=== PATIENT | male | born 1970 | race Caucasian/White ===

== ENCOUNTER 2018-07-23 08:35 | Emergency (ER) | payer SELFPAY ==
[~2018-07-23] VITALS: Ht 175.3 cm; Wt 75.0 kg
[2018-07-23] MEDS ORDERED: SODIUM CHLORIDE 0.9% 1,000 ML IV ONE (09:15)
[2018-07-23] MEDS ORDERED: ZIPRASIDONE MESYLATE 20MG/VIAL IM ONE (09:15)
[2018-07-23 11:42] LABS: CLARITY URINE CLOUDY (CLEAR); COLOR URINE DARK YELLOW (YELLOW); KETONES URINE TRACE (NEGATIVE); LEUKOCYTE ESTERASE URINE NEGATIVE (NEGATIVE); NITRITE URINE NEGATIVE (NEGATIVE); OCCULT BLOOD URINE NEGATIVE (NEGATIVE); PROTEIN URINE 1+ (NEGATIVE); SPECIFIC GRAVITY URINE 1.022 (1.005-1.030)
[2018-07-23 12:13] LABS: *BARBITURATES SCREEN URINE NEGATIVE (NEGATIVE); *BENZODIAZEPINES SCREEN URINE NEGATIVE (NEGATIVE)
[2018-07-23 12:14] LABS: *COCAINE SCREEN URINE NEGATIVE (NEGATIVE)
[2018-07-23 12:15] LABS: CANNABINOID URINE SCREEN NEGATIVE (NEGATIVE); METHADONE URINE SCREEN NEGATIVE (NEGATIVE); OPIATES URINE SCREEN NEGATIVE (NEGATIVE); PHENCYCLIDINE URINE SCREEN NEGATIVE (NEGATIVE)
[2018-07-23 12:25] LABS: *AMPHETAMINES SCREEN URINE PRESUMTIVE POSITIVE (NEGATIVE)
[2018-07-23 13:18] LABS: BASOPHILS % 0.5 % (0.0-2.0); HEMATOCRIT. 39.3 % (42.0-52.0); HEMOGLOBIN. 13.3 g/dL (14.0-18.0); LYMPHOCYTES % 8.4 % (20.0-50.0); MEAN CORPUSCULAR HEMOGLOBIN 29.6 pg (28.0-32.0); MEAN CORPUSCULAR VOLUME 87.5 fL (80.0-94.0); MEAN PLATELET VOLUME 6.9 fl (7.4-10.4); MONOCYTES % 7.2 % (2.0-8.0); NEUTROPHILS % 83.9 % (40.0-76.0); PLATELET 296 x1000/uL (130-400); RED BLOOD CELL COUNT 4.49 mill/uL (4.7-6.1)
[2018-07-23 13:24] LABS: CHLORIDE 106 mEq/L (98-107)
[2018-07-23 13:30] LABS: ETHANOL BLOOD < 10 mg/dL
[2018-07-23] MEDS ORDERED: ZIPRASIDONE HCL 20MG CAPSULE PO ONE ×2 (15:30→22:00)
[2018-07-23] MEDS ORDERED: HYDROCODONE/ACETAMINOPHEN 5/325MG TABLET PO ONE (18:00)
[2018-07-23] MEDS ORDERED: ACETAMINOPHEN 325MG TABLET PO ONE (22:00)
[2018-07-24] MEDS ORDERED: ACETAMINOPHEN 325MG TABLET PO ONE (05:00)
[2018-07-24 14:32] VITALS: BP 111/68
== END 2018-07-24 16:03 | disposition home or self-care (01) ==
LOC: ER 08:40
DX: S22.43XA Multiple fractures of ribs, bilateral, initial encounter for closed fracture (principal); F15.929 Other stimulant use, unspecified with intoxication, unspecified; W18.39XA Other fall on same level, initial encounter; Y93.89 Activity, other specified; Y92.89 Other specified places as the place of occurrence of the external cause; Y99.8 Other external cause status
CPT/HCPCS: 36415; 70450; 71111; 80053; 80305; 80307; 80329; 81003; 85025; 96372; 99284; G0482; J3486; J7030

== ENCOUNTER 2020-10-27 20:48 | Inpatient (IN) | payer MEDICARE, MEDICAID ==
[~2020-10-27] VITALS: Ht 185.4 cm; Wt 91.2 kg
[2020-10-27 23:35] LABS: HEMOGLOBIN. 13.4 g/dL (14.0-18.0); MEAN CORPUSCULAR HEMOGLOBIN 30.1 pg (28.0-32.0); MEAN CORPUSCULAR VOLUME 89.3 fL (80.0-94.0); MEAN PLATELET VOLUME 8.7 fl (7.4-10.4); PLATELET 164 x1000/uL (130-400); RED BLOOD CELL COUNT 4.47 mill/uL (4.7-6.1); RED CELL DISTRIBUTION WIDTH 13.1 % (11.6-14.6)
[2020-10-27 23:37] LABS: CHLORIDE 103 mEq/L (98-107)
[2020-10-28] MEDS ORDERED: SODIUM CHLORIDE 0.9% 500 ML IV ONE ×3 (02:15→18:00)
[2020-10-28] MEDS ORDERED: ACETAMINOPHEN 325MG TABLET PO ONE (02:30)
[2020-10-28] MEDS ORDERED: CEFTRIAXONE 1 G PREMIX 50 ML IV ONE (03:45)
[2020-10-28] MEDS ORDERED: SODIUM CHLORIDE 0.9% 1000ML BAG (SEPSIS BOLUS) IV ONE (03:45)
[2020-10-28 04:55] LABS: NUCLEATED RED BLOOD CELLS 2 /100 WBC; PLATELET ESTIMATE NORMAL
[2020-10-28] MEDS ORDERED: MORPHINE SULFATE 2 MG/ML CPJ (NOT FOR IM USE) IV PRN (08:15)
[2020-10-28] MEDS ORDERED: ONDANSETRON HCL 4MG/2ML INJ IV PRN (08:15)
[2020-10-28] MEDS ORDERED: LORAZEPAM 2MG/ML CPJ IV PRN (08:15)
[2020-10-28] MEDS ORDERED: PIPERACILLIN/TAZ 3.375G PREMIX 50 ML IV SCH (08:30)
[2020-10-28 08:43] LABS: CLARITY URINE CLOUDY (CLEAR); COLOR URINE DARK YELLOW (YELLOW); KETONES URINE TRACE (NEGATIVE); LEUKOCYTE ESTERASE URINE 1+ (NEGATIVE); NITRITE URINE POSITIVE (NEGATIVE); OCCULT BLOOD URINE NEGATIVE (NEGATIVE); PROTEIN URINE 1+ (NEGATIVE); SPECIFIC GRAVITY URINE 1.021 (1.005-1.030); UROBILINOGEN URINE 0.2 E.U./dL (0.2-1.0)
[2020-10-28] MEDS: SODIUM CHLORIDE 0.9% 1,000 ML IV SCH ×2 (08:44→20:50)
[2020-10-28 09:17] LABS: HEPATITIS B SURFACE ANTIGEN NEGATIVE
[2020-10-28 09:47] LABS: HEPATITIS A AB IGM NEGATIVE (NEGATIVE)
[2020-10-28 12:00] VITALS: BP 107/66
[2020-10-28] MEDS: ACETAMINOPHEN 325MG TABLET PO PRN ×2 (12:14→18:08)
[2020-10-28] MEDS ORDERED: LORAZEPAM 2MG/ML CPJ IV NR (14:00)
[2020-10-28 14:20] VITALS: BP 100/56
[2020-10-28] MEDS ORDERED: SODIUM CHLORIDE 0.9% 500 ML IV NR (14:45)
[2020-10-28] MEDS: MIDODRINE HCL 5MG TABLET PO SCH ×2 (14:49→18:07)
[2020-10-28 16:00] VITALS: BP_SYST 95; BP_DIAS 51; BP_DIAS 61
[2020-10-28] MEDS: PIPERACILLIN/TAZOBACTAM 3.375 G in DEXT 5% WATER 100 ML IV SCH ×2 (16:37→20:35)
[2020-10-28 20:00] VITALS: BP 104/61
[2020-10-28] MEDS ORDERED: NOREPINEPHRINE 32 MG in DEXT 5% WATER 218 ML IV PRN (20:00)
[2020-10-28] MEDS ORDERED: QUETIAPINE FUMARATE 50MG TABLET PO SCH ×2 (21:00)
[2020-10-28 22:00] VITALS: BP 88/48
[2020-10-28] MEDS ORDERED: VANCOMYCIN 2,000 MG in DEXT 5% WATER 500 ML IV NR (22:00)
[2020-10-28] MEDS: LORAZEPAM 2MG/ML CPJ IV PRN (22:06)
[2020-10-29] VITALS (12 sets, daily range): BP systolic 82–114; BP diastolic 39–63
[2020-10-29] MEDS: ACETAMINOPHEN 325MG TABLET PO PRN ×2 (01:35→12:38)
[2020-10-29] MEDS: PIPERACILLIN/TAZOBACTAM 3.375 G in DEXT 5% WATER 100 ML IV SCH ×4 (03:16→21:21)
[2020-10-29] MEDS: SODIUM CHLORIDE 0.9% 1,000 ML IV SCH ×2 (04:15→15:28)
[2020-10-29 07:38] LABS: BASOPHILS % 0.2 % (0.0-2.0); EOSINOPHILS % 0.6 % (0.0-5.0); HEMATOCRIT. 34.3 % (42.0-52.0); HEMOGLOBIN. 11.6 g/dL (14.0-18.0); LYMPHOCYTES % 8.8 % (20.0-50.0); MEAN CORPUSCULAR HEMOGLOBIN 30.2 pg (28.0-32.0); MEAN CORPUSCULAR VOLUME 89.5 fL (80.0-94.0); MEAN PLATELET VOLUME 9.3 fl (7.4-10.4); MONOCYTES % 9.9 % (2.0-8.0); NEUTROPHILS % 80.5 % (40.0-76.0); PLATELET 110 x1000/uL (130-400); RED BLOOD CELL COUNT 3.83 mill/uL (4.7-6.1); RED CELL DISTRIBUTION WIDTH 13.6 % (11.6-14.6)
[2020-10-29] MEDS: MIDODRINE HCL 5MG TABLET PO SCH ×3 (08:12→16:20)
[2020-10-29] MEDS ORDERED: VANCOMYCIN 1 G PREMIX 200 ML IV SCH (11:00)
[2020-10-29] MEDS: VANCOMYCIN 1250MG in DEXTROSE 5% WATER 250ML IV SCH (11:34)
[2020-10-29] MEDS ORDERED: QUET50TA PO (12:13)
[2020-10-29] MEDS ORDERED: BUPR-102 MT (12:13)
[2020-10-29] MEDS ORDERED: DIVA500T3 PO (12:13)
[2020-10-29] MEDS: BUPROPION HCL 150MG TABLET XL 24HR PO SCH (14:09)
[2020-10-29 14:40] LABS: *AMPHETAMINES SCREEN URINE NEGATIVE (NEGATIVE); *BARBITURATES SCREEN URINE NEGATIVE (NEGATIVE); *BENZODIAZEPINES SCREEN URINE NEGATIVE (NEGATIVE)
[2020-10-29 14:41] LABS: *COCAINE SCREEN URINE NEGATIVE (NEGATIVE); CANNABINOID URINE SCREEN NEGATIVE (NEGATIVE); METHADONE URINE SCREEN NEGATIVE (NEGATIVE); OPIATES URINE SCREEN NEGATIVE (NEGATIVE); PHENCYCLIDINE URINE SCREEN NEGATIVE (NEGATIVE)
[2020-10-29] MEDS ORDERED: SODIUM CHLORIDE 0.9% 500 ML IV ONE (18:30)
[2020-10-29] MEDS: DIVALPROEX SODIUM 500MG DR TABLET PO SCH (21:21)
[2020-10-29] MEDS: QUETIAPINE FUMARATE 50MG TABLET PO SCH (21:21)
[2020-10-30] VITALS (7 sets, daily range): BP systolic 90–125; BP diastolic 56–77
[2020-10-30] MEDS: SODIUM CHLORIDE 0.9% 1,000 ML IV SCH ×2 (00:17→15:25)
[2020-10-30] MEDS: LORAZEPAM 2MG/ML CPJ IV PRN (02:46)
[2020-10-30] MEDS: PIPERACILLIN/TAZOBACTAM 3.375 G in DEXT 5% WATER 100 ML IV SCH ×4 (02:46→22:18)
[2020-10-30] MEDS: VANCOMYCIN 1250MG in DEXTROSE 5% WATER 250ML IV SCH (05:24)
[2020-10-30 07:05] LABS: HEMATOCRIT. 31.6 % (42.0-52.0); HEMOGLOBIN. 10.7 g/dL (14.0-18.0); MEAN CORPUSCULAR HEMOGLOBIN 29.8 pg (28.0-32.0); MEAN CORPUSCULAR VOLUME 88.3 fL (80.0-94.0); MEAN PLATELET VOLUME 9.6 fl (7.4-10.4); PLATELET 118 x1000/uL (130-400); RED BLOOD CELL COUNT 3.58 mill/uL (4.7-6.1); RED CELL DISTRIBUTION WIDTH 13.1 % (11.6-14.6)
[2020-10-30 07:20] LABS: CHLORIDE 110 mEq/L (98-107)
[2020-10-30] MEDS ORDERED: BUPROPION HCL 150MG TABLET XL 24HR PO SCH (09:00)
[2020-10-30] MEDS: DIVALPROEX SODIUM 500MG DR TABLET PO SCH ×2 (09:55→20:57)
[2020-10-30] MEDS: MIDODRINE HCL 5MG TABLET PO SCH ×4 (09:55→22:19)
[2020-10-30] MEDS: BUPROPION HCL 150MG TABLET XL 24HR PO SCH (12:40)
[2020-10-30 14:21] LABS: PLATELET ESTIMATE SLIGHTLY DECREASED
[2020-10-30] MEDS ORDERED: ENOXAPARIN 40MG/0.4ML SYR SUBCUT SCH (17:00)
[2020-10-30] MEDS: QUETIAPINE FUMARATE 50MG TABLET PO SCH (20:58)
[2020-10-30] MEDS ORDERED: ZOLPIDEM TARTRATE 5MG TABLET PO PRN (21:00)
[2020-10-31] VITALS: BP 103/64
[2020-10-31] MEDS: VANCOMYCIN 1250MG in DEXTROSE 5% WATER 250ML IV SCH
[2020-10-31] MEDS: SODIUM CHLORIDE 0.9% 1,000 ML IV SCH ×2 (02:55→08:16)
[2020-10-31] MEDS: PIPERACILLIN/TAZOBACTAM 3.375 G in DEXT 5% WATER 100 ML IV SCH ×3 (03:52→14:42)
[2020-10-31 03:56] VITALS: BP 105/59
[2020-10-31] MEDS: MIDODRINE HCL 5MG TABLET PO SCH ×2 (06:17→13:13)
[2020-10-31 06:21] LABS: HEMATOCRIT. 34.2 % (42.0-52.0); HEMOGLOBIN. 11.4 g/dL (14.0-18.0); MEAN CORPUSCULAR HEMOGLOBIN 29.7 pg (28.0-32.0); MEAN CORPUSCULAR VOLUME 89.2 fL (80.0-94.0); MEAN PLATELET VOLUME 9.5 fl (7.4-10.4); PLATELET 144 x1000/uL (130-400); RED BLOOD CELL COUNT 3.84 mill/uL (4.7-6.1); RED CELL DISTRIBUTION WIDTH 13.9 % (11.6-14.6)
[2020-10-31 06:25] LABS: CHLORIDE 110 mEq/L (98-107)
[2020-10-31 08:00] VITALS: BP 100/52
[2020-10-31] MEDS: DIVALPROEX SODIUM 500MG DR TABLET PO SCH (08:16)
[2020-10-31 10:59] VITALS: BP 123/76
[2020-10-31 12:00] VITALS: BP 98/50
[2020-10-31] MEDS ORDERED: VANCOMYCIN 1 G PREMIX 200 ML IV SCH (12:00)
[2020-10-31] MEDS: BUPROPION HCL 150MG TABLET XL 24HR PO SCH (13:11)
[2020-10-31 15:57] LABS: PLATELET ESTIMATE NORMAL
== END 2020-10-31 15:23 | disposition home or self-care (01) | DRG 871 ==
LOC: ER 20:48 → 5EST 10-28 03:52 → EDBEDREQSVC 10-28 08:58 → ENRESERV 10-28 09:22 → 5EST 10-28 15:20
PROVIDERS: ADMIT Internal Medicine; ATTEND Internal Medicine
DX: A41.9 Sepsis, unspecified organism (principal); K85.90 Acute pancreatitis without necrosis or infection, unspecified; R65.21 Severe sepsis with septic shock; N17.0 Acute kidney failure with tubular necrosis; N39.0 Urinary tract infection, site not specified; F32.9 Major depressive disorder, single episode, unspecified; F41.0 Panic disorder [episodic paroxysmal anxiety]; F15.21 Other stimulant dependence, in remission
CPT/HCPCS: 36415; 71045; 74176; 76705; 78580; 80048; 80053; 80202; 80305; 81003; 82962; 83605; 84145; 84484; 85025; 86705; 86709; 86803; 87340; 87426; 93005; 93306; 99291; J0696; J1650; J2060; J2543; J3370; J7030; J7040; J7060

== ENCOUNTER 2020-12-11 23:05 | Inpatient (IN) | payer MEDICARE, MEDICAID ==
[~2020-12-11] VITALS: Ht 182.9 cm; Wt 90.3 kg
[~2020-12-11 23:05] MED LIST: BUPR-102 MT; DIVA500T3 PO; QUET50TA PO
[2020-12-12] MEDS ORDERED: ONDANSETRON HCL 4MG/2ML INJ IV STA (00:11)
[2020-12-12] MEDS ORDERED: SODIUM CHLORIDE 0.9% 1,000 ML IV ONE (00:15)
[2020-12-12 00:35] LABS: HEMATOCRIT. 41.8 % (42.0-52.0); HEMOGLOBIN. 14.5 g/dL (14.0-18.0); MEAN CORPUSCULAR HEMOGLOBIN 30.6 pg (28.0-32.0); PLATELET 302 x1000/uL (130-400); RED BLOOD CELL COUNT 4.75 mill/uL (4.7-6.1); RED CELL DISTRIBUTION WIDTH 15.6 % (11.6-14.6)
[2020-12-12 00:49] LABS: CHLORIDE 103 mEq/L (98-107)
[2020-12-12 00:53] LABS: ETHANOL BLOOD < 10 mg/dL
[2020-12-12 01:25] LABS: PLATELET ESTIMATE NORMAL
[2020-12-12] MEDS ORDERED: VANCOMYCIN 1 G PREMIX 200 ML IV SCH (03:00)
[2020-12-12] MEDS ORDERED: QUETIAPINE FUMARATE 50MG TABLET PO SCH (03:00)
[2020-12-12] MEDS ORDERED: PIPERACILLIN/TAZ 3.375G PREMIX 50 ML IV SCH (03:00)
[2020-12-12] MEDS ORDERED: SODIUM CHLORIDE 0.9% 1,000 ML IV SCH (03:00)
[2020-12-12 11:00] VITALS: BP 88/43
[2020-12-12] MEDS ORDERED: MAGNESIUM/ALUMINUM HYDROXIDE/SIMETHICONE 30ML UDC PO PRN (11:00)
[2020-12-12] MEDS ORDERED: CLONIDINE 0.1MG TABLET PO PRN (11:00)
[2020-12-12] MEDS ORDERED: HYDROCODONE/ACETAMINOPHEN 5/325MG TABLET PO PRN (11:00)
[2020-12-12] MEDS ORDERED: ONDANSETRON HCL 4MG/2ML INJ IV PRN (11:00)
[2020-12-12] MEDS ORDERED: DOCUSATE SODIUM 100MG CAPSULE PO PRN (11:00)
[2020-12-12] MEDS ORDERED: ACETAMINOPHEN 325MG TABLET PO PRN (11:00)
[2020-12-12] MEDS ORDERED: SODIUM CHLORIDE 0.9% 500 ML IV ONE ×2 (11:30→12:30)
[2020-12-12] MEDS: ENOXAPARIN 40MG/0.4ML SYR SUBCUT SCH (11:52)
[2020-12-12 12:00] VITALS: BP 72/49
[2020-12-12] MEDS: PIPERACILLIN/TAZOBACTAM 3.375 G in DEXT 5% WATER 100 ML IV SCH ×2 (13:35→21:19)
[2020-12-12] MEDS: SODIUM CHLORIDE 0.9% 1,000 ML IV SCH (13:35)
[2020-12-12 14:07] LABS: CLARITY URINE CLEAR (CLEAR); COLOR URINE DARK YELLOW (YELLOW); KETONES URINE TRACE (NEGATIVE); LEUKOCYTE ESTERASE URINE TRACE (NEGATIVE); NITRITE URINE NEGATIVE (NEGATIVE); OCCULT BLOOD URINE NEGATIVE (NEGATIVE); PROTEIN URINE 1+ (NEGATIVE); SPECIFIC GRAVITY URINE 1.024 (1.005-1.030); UROBILINOGEN URINE 0.2 E.U./dL (0.2-1.0)
[2020-12-12 14:41] LABS: *AMPHETAMINES SCREEN URINE NEGATIVE (NEGATIVE); *BARBITURATES SCREEN URINE NEGATIVE (NEGATIVE); *BENZODIAZEPINES SCREEN URINE NEGATIVE (NEGATIVE); *COCAINE SCREEN URINE NEGATIVE (NEGATIVE); METHADONE URINE SCREEN NEGATIVE (NEGATIVE)
[2020-12-12 14:42] LABS: CANNABINOID URINE SCREEN NEGATIVE (NEGATIVE); OPIATES URINE SCREEN NEGATIVE (NEGATIVE); PHENCYCLIDINE URINE SCREEN NEGATIVE (NEGATIVE)
[2020-12-12 16:00] VITALS: BP 85/58
[2020-12-12] MEDS: VANCOMYCIN 750 MG PREMIX 150 ML IV SCH (18:27)
[2020-12-12 20:00] VITALS: BP 89/50
[2020-12-13] VITALS: BP 88/67
[2020-12-13] MEDS: SODIUM CHLORIDE 0.9% 1,000 ML IV SCH ×3 (02:25→17:41)
[2020-12-13 03:56] VITALS: BP 97/45
[2020-12-13] MEDS: PIPERACILLIN/TAZOBACTAM 3.375 G in DEXT 5% WATER 100 ML IV SCH ×3 (04:54→20:26)
[2020-12-13] MEDS: VANCOMYCIN 750 MG PREMIX 150 ML IV SCH (05:27)
[2020-12-13 07:15] LABS: HEMATOCRIT. 31.1 % (42.0-52.0); HEMOGLOBIN. 10.8 g/dL (14.0-18.0); MEAN CORPUSCULAR HEMOGLOBIN 30.5 pg (28.0-32.0); MEAN CORPUSCULAR VOLUME 88.1 fL (80.0-94.0); MEAN PLATELET VOLUME 8.2 fl (7.4-10.4); PLATELET 236 x1000/uL (130-400); RED BLOOD CELL COUNT 3.53 mill/uL (4.7-6.1); RED CELL DISTRIBUTION WIDTH 15.7 % (11.6-14.6)
[2020-12-13 07:32] LABS: PHOSPHORUS 2.8 mg/dL (2.5-4.9)
[2020-12-13] MEDS: PANTOPRAZOLE SODIUM 40 MG/VIAL IV SCH (08:11)
[2020-12-13] MEDS: ENOXAPARIN 40MG/0.4ML SYR SUBCUT SCH (11:03)
[2020-12-13] MEDS: MIDODRINE HCL 5MG TABLET PO SCH ×2 (11:04→17:41)
[2020-12-13 12:00] VITALS: BP 100/49
[2020-12-13 16:00] VITALS: BP 93/74
[2020-12-13] MEDS: DIVALPROEX SODIUM 500MG DR TABLET PO SCH (17:00)
[2020-12-13 20:00] VITALS: BP 102/55
[2020-12-13] MEDS: QUETIAPINE FUMARATE 50MG TABLET PO SCH (20:27)
[2020-12-13] MEDS ORDERED: VANCOMYCIN 1 G PREMIX 200 ML IV SCH (21:00)
[2020-12-13 22:26] LABS: PLATELET ESTIMATE NORMAL
[2020-12-14] VITALS: BP 108/60
[2020-12-14] MEDS: MIDODRINE HCL 5MG TABLET PO SCH ×3 (01:56→17:38)
[2020-12-14] MEDS: SODIUM CHLORIDE 0.9% 1,000 ML IV SCH ×2 (03:32→14:41)
[2020-12-14 04:00] VITALS: BP 102/59
[2020-12-14] MEDS: PIPERACILLIN/TAZOBACTAM 3.375 G in DEXT 5% WATER 100 ML IV SCH ×3 (04:45→21:23)
[2020-12-14 07:09] LABS: BASOPHILS % 0.4 % (0.0-2.0); EOSINOPHILS % 8.3 % (0.0-5.0); HEMATOCRIT. 30.8 % (42.0-52.0); HEMOGLOBIN. 10.7 g/dL (14.0-18.0); LYMPHOCYTES % 31.8 % (20.0-50.0); MEAN CORPUSCULAR HEMOGLOBIN 30.9 pg (28.0-32.0); MEAN CORPUSCULAR VOLUME 89.1 fL (80.0-94.0); MEAN PLATELET VOLUME 8.2 fl (7.4-10.4); MONOCYTES % 6.2 % (2.0-8.0); NEUTROPHILS % 53.3 % (40.0-76.0); PLATELET 231 x1000/uL (130-400); RED BLOOD CELL COUNT 3.46 mill/uL (4.7-6.1); RED CELL DISTRIBUTION WIDTH 15.7 % (11.6-14.6)
[2020-12-14 08:00] VITALS: BP 103/59
[2020-12-14] MEDS: DIVALPROEX SODIUM 500MG DR TABLET PO SCH ×2 (09:00→17:00)
[2020-12-14] MEDS: PANTOPRAZOLE SODIUM 40 MG/VIAL IV SCH (09:31)
[2020-12-14] MEDS: BUPROPION HCL 150MG TABLET XL 24HR PO SCH (09:32)
[2020-12-14 12:00] VITALS: BP 99/72
[2020-12-14 12:21] LABS: CREATINE KINASE 32 IU/L (39-308)
[2020-12-14] MEDS: ENOXAPARIN 40MG/0.4ML SYR SUBCUT SCH (12:53)
[2020-12-14 16:00] VITALS: BP 103/66
[2020-12-14 20:00] VITALS: BP 102/62
[2020-12-14] MEDS: QUETIAPINE FUMARATE 50MG TABLET PO SCH (21:23)
[2020-12-14] MEDS: FAMOTIDINE 20MG/2ML VIAL IV SCH (21:24)
[2020-12-15] VITALS: BP 104/58
[2020-12-15] MEDS: SODIUM CHLORIDE 0.9% 1,000 ML IV SCH ×2 (01:23→11:02)
[2020-12-15] MEDS: MIDODRINE HCL 5MG TABLET PO SCH ×2 (02:33→11:02)
[2020-12-15 04:00] VITALS: BP 102/61
[2020-12-15] MEDS: PIPERACILLIN/TAZOBACTAM 3.375 G in DEXT 5% WATER 100 ML IV SCH ×2 (06:05→12:17)
[2020-12-15 07:34] LABS: BASOPHILS % 0.4 % (0.0-2.0); EOSINOPHILS % 4.1 % (0.0-5.0); HEMATOCRIT. 34.9 % (42.0-52.0); HEMOGLOBIN. 11.5 g/dL (14.0-18.0); LYMPHOCYTES % 39.1 % (20.0-50.0); MEAN CORPUSCULAR HEMOGLOBIN 29.2 pg (28.0-32.0); MEAN CORPUSCULAR VOLUME 88.5 fL (80.0-94.0); MEAN PLATELET VOLUME 8.2 fl (7.4-10.4); NEUTROPHILS % 50.4 % (40.0-76.0); PLATELET 284 x1000/uL (130-400); RED BLOOD CELL COUNT 3.95 mill/uL (4.7-6.1); RED CELL DISTRIBUTION WIDTH 15.5 % (11.6-14.6)
[2020-12-15 07:43] LABS: CHLORIDE 110 mEq/L (98-107)
[2020-12-15 08:00] VITALS: BP 114/70
[2020-12-15] MEDS: BUPROPION HCL 150MG TABLET XL 24HR PO SCH (08:41)
[2020-12-15] MEDS: FAMOTIDINE 20MG/2ML VIAL IV SCH (08:41)
[2020-12-15] MEDS: DIVALPROEX SODIUM 500MG DR TABLET PO SCH ×2 (08:41→08:43)
[2020-12-15 09:11] LABS: IMMUNOGLOBULIN A 159 mg/dL (90-386); IMMUNOGLOBULIN G 1107 mg/dL (603-1613); IMMUNOGLOBULIN M 63 mg/dL (20-172)
[2020-12-15 12:00] VITALS: BP 111/76
[2020-12-15] MEDS: ENOXAPARIN 40MG/0.4ML SYR SUBCUT SCH (12:17)
[2020-12-15 16:00] VITALS: BP 124/86
[2020-12-15 16:25] VITALS: BP 124/86
== END 2020-12-15 17:10 | disposition home or self-care (01) | DRG 871 ==
LOC: ER 23:05 → 8WST 23:50 → ENRESERV 12-12 08:31
PROVIDERS: ADMIT Internal Medicine; ATTEND Internal Medicine
DX: A41.9 Sepsis, unspecified organism (principal); N17.0 Acute kidney failure with tubular necrosis; E87.2 Acidosis; B17.9 Acute viral hepatitis, unspecified; N39.0 Urinary tract infection, site not specified; D64.9 Anemia, unspecified; F41.9 Anxiety disorder, unspecified; F15.90 Other stimulant use, unspecified, uncomplicated; F31.9 Bipolar disorder, unspecified; N18.9 Chronic kidney disease, unspecified; Z79.899 Other long term (current) drug therapy; Z87.440 Personal history of urinary (tract) infections; I95.9 Hypotension, unspecified
CPT/HCPCS: 36415; 71045; 74176; 76770; 80048; 80053; 80076; 80202; 80305; 80320; 81003; 82550; 82784; 83010; 83605; 83615; 83735; 84100; 84145; 84484; 85025; 85651; 86141; 86334; 86880; 93306; 93970; 97162; 97165; 99291; C1893; C9113; J1650; J2405; J2543; J3370; J3490; J7030; J7040; J7060; G0480